=== PATIENT | female | born 1980 | race Caucasian/White ===

== ENCOUNTER 2017-01-18 08:12 | Outpatient (CLI) | payer OTHER ==
--- NOTE | 2017-01-18 13:05 | Ultrasound Report ---
RIGHT UPPER QUADRANT ULTRASOUND: 01/18/2017 CLINICAL INDICATION: Postprandial vomiting. TECHNIQUE: Real-time scanning was performed with solar sales representative and assessor static images obtained. FINDINGS: The liver measures 14.6 cm. Hepatic echogenicity is normal. No intrahepatic biliary dila tation or focal parenchymal lesion is present. The common bile duct measures 6 mm. The gallbladder is normal. The right kidney measures 10.1 cm, and demonstrates no hydronephrosis. No free fluid is present. IMPRESSION: NORMAL RIGHT UPPER QUADRANT ULTRASOUND. JOB #: [id number] EXT JOB #:[id number]
== END 2017-01-18 08:13 | disposition home or self-care (01) ==
LOC: DI 08:12
PROVIDERS: ATTEND Nurse Practitioner Family
DX: R11.10 Vomiting, unspecified (principal)
CPT/HCPCS: 76705

== ENCOUNTER 2017-10-12 22:12 | Emergency (ER) | payer MEDICAID, OTHER ==
[2017-10-12 22:46] LABS: BASOPHILS # (AUTO) 0.1 10^3/uL (0.0-0.1); BASOPHILS % (AUTO) 1.1 %; EOSINOPHILS # (AUTO) 0.3 10^3/uL (0.0-0.7); EOSINOPHILS % (AUTO) 4.5 %; HGB - HEMOGLOBIN 12.2 g/dL (12.0-16.0); LYMPHOCYTES # (AUTO) 1.5 10^3/uL (1.5-3.5); LYMPHOCYTES % (AUTO) 24.1 %; MEAN CORPUSCULAR HEMOGLOBIN 29.7 pg (27.0-31.0); MEAN CORPUSCULAR HGB CONC 33.2 g/dL (32.0-36.0); MEAN CORPUSCULAR VOLUME 89.7 fL (81.0-99.0); MONOCYTES # (AUTO) 0.4 10^3/uL (0.0-1.0); MONOCYTES % (AUTO) 5.7 %; NEUTROPHILS % (AUTO) 64.6 %; PLT - PLATELET COUNT 283 10^3/uL (130-450); RED BLOOD COUNT 4.09 10^6/uL (4.20-5.40); RED CELL DISTRIBUTION WIDTH 12.7 % (12.0-15.0); WHITE BLOOD COUNT 6.2 x10^3/uL (4.8-10.8)
[2017-10-12 23:05] LABS: ALBUMIN 3.1 g/dL (3.2-5.5); ALBUMIN/GLOBULIN RATIO 0.8 (1.0-2.2); ALKALINE PHOSPHATASE 74 IU/L (42-121); ALT ALANINE AMINOTRANSFERASE 42 IU/L (10-60); AST ASPARTATE AMINOTRANSFERASE 32 IU/L (10-42); BILIRUBIN,TOTAL < 0.2 mg/dL (0.2-1.0); BUN - BLOOD UREA NITROGEN 15 mg/dL (6-20); CARBON DIOXIDE - CO2 26 mmol/L (21-32); CHLORIDE 100 mmol/L (101-111); CREATININE 0.5 mg/dL (0.4-1.0); GFR - MDRD 139 (>89); GLUCOSE 110 mg/dL (70-100); LIPASE 13 U/L (22-51); SODIUM 134 mmol/L (135-145)
[2017-10-12] MEDS ORDERED: hydrALAZINE INJ 20 MG/ML VIAL IVP STA (23:08)
[2017-10-12 23:23] LABS: BILIRUBIN,URINE NEGATIVE (NEGATIVE); GLUCOSE, URINE (UA) NEGATIVE (NEGATIVE); KETONES,URINE (UA) NEGATIVE (NEGATIVE); LEUKOCYTE ESTERASE, URINE NEGATIVE (NEGATIVE); NITRITE,URINE NEGATIVE (NEGATIVE); OCCULT BLOOD,URINE MODERATE (NEGATIVE); PROTEIN,URINE NEGATIVE (NEGATIVE); UROBILINOGEN,URINE 0.2 (NORMAL) E.U./dL (NORMAL)
[2017-10-12 23:31] LABS: CLARITY,URINE CLEAR (CLEAR)
[2017-10-12 23:32] LABS: BACTERIA,URINE None Seen /HPF (None Seen); SQUAMOUS EPITHELIAL CELL,UR RARE Squamous (<= Few)
[2017-10-12] MEDS ORDERED: NIFEdipine ER 30 MG TABLET PO STA (23:45)
[2017-10-13 00:17] VITALS: BP 132/90
--- NOTE | 2017-10-13 00:31 | ED Physician Documentation ---
History of Present Illness - Stated complaint Stated Complaint: HIGH BP - Chief complaint Chief Complaint: General - History obtained from History obtained from: Patient, Family - History of Present Illness Timing: How many days ago (3) - Additonal information Additional information: Patient is a 37 year old female with a history of pre-eclampsia who is presenting to the emergency department for high blood pressure. patient states that she developed pre-eclampsia with both of her pregnancies. The child was induced at 38 weeks, 4 days ago. Patient states that her blood pressures had only been remotely high, but for the last two days patient's blood pressure has been close to 150/100. Patient denies any chest pain, shortness of breath, abdominal pain or headaches with the blood pressures. Review of Systems Constitutional: denies: Fever, Chills Eyes: reports: Reviewed and negative Ears: reports: Reviewed and negative Nose: reports: Reviewed and negative Throat: reports: Reviewed and negative Cardiac: denies: Chest pain / pressure, Palpitations Respiratory: denies: Dyspnea, Cough, Hemoptysis GI: denies: Abdominal Pain, Nausea, Vomiting : denies: Dysuria Skin: denies: Rash Musculoskeletal: reports: Back pain. denies: Neck pain Neurologic: denies: Numbness, Difficulty speaking, Syncope, Headache Immunocompromised: denies: Immunocompromised PD PAST MEDICAL HISTORY - Past Medical History Past Medical History: No Cardiovascular: None Respiratory: None Neuro: None Endocrine/Autoimmune: None GI: None METAL SMELTER: None : None HEENT: None Psych: None Musculoskeletal: None Derm: None - Past Surgical History Past Surgical History: No - Present Medications Home Medications: Ambulatory Orders Medication Instructions Recorded Confirmed Nifedipine [Nifedipine ER] 30 mg PO DAILY #14 tab.er.24 10/13/17 - Allergies Allergies/Adverse Reactions: Allergies Allergy/AdvReac Type Severity Reaction Status Date / Time No Known Drug Allergies Allergy Verified 10/12/17 22:20 - Social History Does the pt smoke?: No Smoking Status: Never smoker Does the pt drink ETOH?: No Does the pt have substance abuse?: No - Immunizations Immunizations are current?: Yes PD ED PE NORMAL - Vitals Vital signs reviewed: Yes - General General: Alert and oriented X 3, No acute distress - HEENT HEENT: Atraumatic, PERRL - Neck Neck: Supple, no meningeal sign, No JVD - Cardiac Cardiac: RRR, No murmur - Respiratory Respiratory: No respiratory distress, Clear bilaterally - Abdomen Abdomen: Soft - Derm Derm: Normal color, No rash - Extremities Extremities: No deformity, No edema, No calf tenderness / cord - Neuro Neuro: Alert and oriented X 3, Normal speech Eye Opening: Spontaneous Results - Vitals Vitals: Vital Signs - 24 hr 10/12/17 10/12/17 10/12/17 22:16 23:30 23:36 Temperature 36.2 C L Heart Rate 79 73 67 Respiratory 18 16 16 Rate Blood Pressure 157/108 H 150/114 H 158/100 H O2 Saturation 100 98 97 10/12/17 10/12/17 10/12/17 23:40 23:45 23:51 Temperature Heart Rate 71 76 73 Respiratory 16 16 16 Rate Blood Pressure 148/108 H 144/100 H 144/91 H O2 Saturation 97 98 99 10/13/17 10/13/17 00:01 00:17 Temperature Heart Rate 86 76 Respiratory 16 16 Rate Blood Pressure 138/93 H 132/90 H O2 Saturation 98 98 Oxygen O2 Source Room air - EKG (time done) 2246 Rate: Rate (enter#) (65) Rhythm: NSR QRS: LVH Ischemia: Normal ST segments Compare to prior EKG: Old EKG unavailable - Labs Labs: Laboratory Tests 10/12/17 10/12/17 10/12/17 22:34 22:39 22:39 WBC 6.2 RBC 4.09 L Hgb 12.2 Hct 36.7 L MCV 89.7 MCH 29.7 MCHC 33.2 RDW 12.7 Plt Count 283 MPV 9.0 Neut # 4.0 Lymph # 1.5 Morton # 0.4 Eos # 0.3 Baso # 0.1 Absolute Nucleated RBC 0.01 Nucleated RBC % 0.1 Sodium 134 L Potassium 3.7 Chloride 100 L Carbon Dioxide 26 Anion Gap 8.0 BUN 15 Creatinine 0.5 Estimated GFR (MDRD) 139 Glucose 110 H Calcium 9.0 Total Bilirubin < 0.2 L AST 32 ALT 42 Alkaline Phosphatase 74 Troponin I B-Natriuretic Peptide Total Protein 7.0 Albumin 3.1 L Globulin 3.9 Albumin/Globulin Ratio 0.8 L Lipase 13 L Urine Color YELLOW Urine Clarity CLEAR Urine pH 6.0 Ur Specific Baxter 1.015 Urine Protein NEGATIVE Urine Glucose (UA) NEGATIVE Urine Ketones NEGATIVE Urine Occult Blood MODERATE H Urine Nitrite NEGATIVE Urine Bilirubin NEGATIVE Urine Urobilinogen 0.2 (NORMAL) Ur Leukocyte Esterase NEGATIVE Urine RBC 6-10 H Urine WBC 0-3 Ur Squamous Epith Cells RARE Squamous Urine Bacteria None Seen Ur Microscopic Review INDICATED Urine Culture Comments NOT INDICATED 10/12/17 10/12/17 22:39 22:39 WBC RBC Hgb Hct MCV MCH MCHC RDW Plt Count MPV Neut # Lymph # Morton # Eos # Baso # Absolute Nucleated RBC Nucleated RBC % Sodium Potassium Chloride Carbon Dioxide Anion Gap BUN Creatinine Estimated GFR (MDRD) Glucose Calcium Total Bilirubin AST ALT Alkaline Phosphatase Troponin I < 0.04 B-Natriuretic Peptide 41 Total Protein Albumin Globulin Albumin/Globulin Ratio Lipase Urine Color Urine Clarity Urine pH Ur Specific Baxter Urine Protein Urine Glucose (UA) Urine Ketones Urine Occult Blood Urine Nitrite Urine Bilirubin Urine Urobilinogen Ur Leukocyte Esterase Urine RBC Urine WBC Ur Squamous Epith Cells Urine Bacteria Ur Microscopic Review Urine Culture Comments PD MEDICAL DECISION MAKING - ED course Complexity details: reviewed old records, reviewed results, re-evaluated patient , considered differential, d/w patient, d/w family, d/w residential sales consultant ED course: Patient was seen and examined at bedside. Iv access was gained and labs were drawn. patient was treated with hydralizine 10mg iv. Patient's urine was collected. patient blood work showed no signs of end organ damage. lfts and platelets were within normal limits. Patient's urine had no protein in it. Patient's blood pressure improved to 130/80. Case was discussed with Dr. Butler who agreed with the plan of discharge, starting the patient on antihypertensives and outpatient follow up. detailed discharge and follow up instructions were given to the patient and the family and patient was stable for outpatient follow up. Departure - Departure Disposition: 01 Home, Self Care Clinical Impression: Pre-eclampsia Condition: Good Instructions: Preeclampsia Follow-Up: Renetta Tucker ARNP [Primary Care Provider] - Prescriptions: Nifedipine [Nifedipine ER] 30 mg PO DAILY #14 tab.er.[id number] Comments: your diagnostics today were within normal limits. Your blood pressure responded to the medications so you will be started on an oral version. You should take it everyday. You should monitor your blood pressure three times a day and keep a journal. You should follow up with your OB this week. You should return to the emergency department for chest pain, shortness of breath, severe headaches, new worsening or uncontrollable symptoms.
[2017-10-13] MEDS ORDERED: NIFEdipine ER 30 MG TABLET PO STA (00:34)
[2017-10-13] MEDS ORDERED: NIFEdipine 10 MG CAPSULE PO ONE (00:46)
== END 2017-10-13 00:57 | disposition home or self-care (01) ==
LOC: ED 22:12
DX: O14.95 Unspecified pre-eclampsia, complicating the puerperium (principal)
CPT/HCPCS: 36415; 80053; 81001; 83690; 83880; 84484; 85025; 93005; 96374; 99284; A9270; 81003; 87086

== ENCOUNTER 2018-10-17 08:26 | Outpatient (CLI) | payer OTHER ==
[2018-10-17 09:20] LABS: BASOPHILS % (AUTO) 0.6 %; EOSINOPHILS # (AUTO) 0.4 10^3/uL (0.0-0.7); EOSINOPHILS % (AUTO) 7.6 %; HGB - HEMOGLOBIN 13.9 g/dL (12.0-16.0); LYMPHOCYTES # (AUTO) 1.6 10^3/uL (1.5-3.5); LYMPHOCYTES % (AUTO) 34.1 %; MEAN CORPUSCULAR HGB CONC 33.8 g/dL (32.0-36.0); MEAN CORPUSCULAR VOLUME 91.9 fL (81.0-99.0); MEAN PLATELET VOLUME 8.5 fL (7.9-10.8); MONOCYTES # (AUTO) 0.4 10^3/uL (0.0-1.0); MONOCYTES % (AUTO) 8.8 %; NEUTROPHILS # (AUTO) 2.3 10^3/uL (1.5-6.6); NEUTROPHILS % (AUTO) 48.9 %; PLT - PLATELET COUNT 247 10^3/uL (130-450); RED BLOOD COUNT 4.48 10^6/uL (4.20-5.40); RED CELL DISTRIBUTION WIDTH 13.1 % (12.0-15.0); WHITE BLOOD COUNT 4.6 x10^3/uL (4.8-10.8)
[2018-10-17 09:29] LABS: ALBUMIN 4.2 g/dL (3.2-5.5); ALBUMIN/GLOBULIN RATIO 1.4 (1.0-2.2); ALKALINE PHOSPHATASE 44 IU/L (42-121); ALT ALANINE AMINOTRANSFERASE 17 IU/L (10-60); AST ASPARTATE AMINOTRANSFERASE 19 IU/L (10-42); BILIRUBIN,TOTAL 0.8 mg/dL (0.2-1.0); BUN - BLOOD UREA NITROGEN 16 mg/dL (6-20); CALCIUM 9.2 mg/dL (8.5-10.3); CARBON DIOXIDE - CO2 26 mmol/L (21-32); CHLORIDE 98 mmol/L (101-111); CHOL/HDL RATIO 3.8 (<4.4); CHOLESTEROL 266 mg/dL; CREATININE 0.6 mg/dL (0.4-1.0); GFR - MDRD 112 (>89); GLUCOSE 81 mg/dL (70-100); HDL CHOLESTEROL 70 mg/dL; LDL CHOLESTEROL,CALCULATED 171 mg/dL; LDL/HDL RATIO 2.4 (<4.4); SODIUM 135 mmol/L (135-145); TOTAL PROTEIN 7.2 g/dL (6.7-8.2); VLDL CHOLESTEROL 25 mg/dL
--- NOTE | 2018-10-17 10:07 | Ultrasound Report ---
Reason: LOCALIZED SWELLING,MASS AND LUMP,NECK Procedure Date: 10/17/2018 Accession Number: [id number] / [id number] Procedure: US - Head or Neck Soft Tissue CPT Code: FULL RESULT: EXAM: THYROID ULTRASOUND EXAM DATE: 10/17/2018 09:02 AM. CLINICAL HISTORY: Localized swelling, mass and lump, neck. COMPARISON: None. TECHNIQUE: Real time sonographic imaging of the thyroid was performed by the family consumer science fcs teacher. Multiple credit resolution representative static images were saved for review. FINDINGS: THYROID GLAND: Right Lobe: 5.6 x 2.0 x 2.0 cm, volume 11.9 cc. Microscopic colloid cysts, otherwise normal background. Right Lobe Nodules: 2.3 x 1.7 x 2.2 cm inferior pole complex partially cystic partially solid nodule with peripheral vascularity. Left Lobe: 4.3 x 1.5 x 1.5 cm, volume 4.9 cc. Microscopic colloid cyst, otherwise normal background parenchyma. Left Lobe Nodules: Cystic appearing 0.5 x 0.3 x 0.3 cm nodule. Isthmus: 0.3 cm AP. Isthmic Nodules: None. LYMPH NODES: A few prominent lymph nodes which appear morphologically normal and do not meet size criteria. OTHER: None. IMPRESSION: Recommend fine-needle aspiration sampling of the right lower pole 2.3 cm nodule. Management recommendations are based on 2015 [place] [employer] Management Guidelines for Adult Patients with Thyroid Nodules and Differentiated Thyroid Cancer. RADIA
== END 2018-10-17 08:27 | disposition home or self-care (01) ==
LOC: DI 08:26
PROVIDERS: ATTEND Nurse Practitioner
DX: Z00.00 Encounter for general adult medical examination without abnormal findings (principal); E04.1 Nontoxic single thyroid nodule
CPT/HCPCS: 36415; 76536; 80053; 80061; 83721; 84443; 85025

== ENCOUNTER 2018-12-13 07:40 | Outpatient (CLI) | payer OTHER ==
[2018-12-13] MEDS ORDERED: BUFFERED LIDOCAINE 10 ML SYRINGE ONE (08:34)
--- NOTE | 2018-12-13 10:41 | Ultrasound Report ---
Reason: THYROID NODULE,RIGHT Procedure Date: 12/13/2018 Accession Number: [id number] / [id number] Procedure: US - FNA Bx w/US Gnd les CPT Code: 24974 FULL RESULT: EXAM: Thyroid Fine Needle Aspiration EXAM DATE: 12/13/2018 08:52 AM. CLINICAL HISTORY: Thyroid nodule, right. COMPARISON: None. TECHNIQUE: The risks, benefits, and alternatives of the procedure were discussed with the patient. All questions were answered. Written and verbal consent were obtained. A site was marked over the right thyroid nodule in question under live sonographic evaluation, then subsequently prepped and draped in a sterile manner. Local anesthesia was performed with 1% lidocaine. A total of 4 22-gauge fine-needle aspirates/passes were performed through the cystic partially solid right thyroid lobe nodule in question, then passed to the node js developer for preparation. Estimated blood loss was 0 mL. Sonographic images demonstrate needle placement within the right thyroid lobe nodule in question. Fluoroscopy Time: 0 minutes Number of Images: 15 sonographic images FINDINGS IMPRESSION: Right thyroid nodule FNA. RADIA
[2018-12-13] MEDS ORDERED: BUFFERED LIDOCAINE 10 ML SYRINGE IU ONE (11:24)
== END 2018-12-13 07:41 | disposition home or self-care (01) ==
LOC: DI 07:40
PROVIDERS: ATTEND Nurse Practitioner
DX: E04.1 Nontoxic single thyroid nodule (principal)
CPT/HCPCS: 10005

== ENCOUNTER 2021-02-20 08:32 | Outpatient (CLI) | payer OTHER ==
[2021-02-20 16:27] LABS: BASOPHILS % (AUTO) 0.6 %; EOSINOPHILS # (AUTO) 0.3 10^3/uL (0.0-0.7); EOSINOPHILS % (AUTO) 6.3 %; HCT - HEMATOCRIT 43.5 % (37.0-47.0); LYMPHOCYTES # (AUTO) 1.6 10^3/uL (1.5-3.5); LYMPHOCYTES % (AUTO) 32.5 %; MEAN CORPUSCULAR HGB CONC 32.2 g/dL (32.0-36.0); MEAN CORPUSCULAR VOLUME 99.5 fL (81.0-99.0); MEAN PLATELET VOLUME 10.8 fL (7.9-10.8); MONOCYTES # (AUTO) 0.3 10^3/uL (0.0-1.0); NEUTROPHILS # (AUTO) 2.6 10^3/uL (1.5-6.6); NEUTROPHILS % (AUTO) 53.2 %; PLT - PLATELET COUNT 302 10^3/uL (130-450); RED BLOOD COUNT 4.37 10^6/uL (4.20-5.40); RED CELL DISTRIBUTION WIDTH 12.2 % (12.0-15.0); WHITE BLOOD COUNT 4.9 x10^3/uL (4.8-10.8)
[2021-02-20 17:01] LABS: ALBUMIN 4.3 g/dL (3.2-5.5); ALBUMIN/GLOBULIN RATIO 1.7 (1.0-2.2); ALKALINE PHOSPHATASE 26 IU/L (42-121); ALT ALANINE AMINOTRANSFERASE 11 IU/L (10-60); AST ASPARTATE AMINOTRANSFERASE 17 IU/L (10-42); BILIRUBIN,TOTAL 0.7 mg/dL (0.2-1.0); BUN - BLOOD UREA NITROGEN 12 mg/dL (6-20); CALCIUM 9.2 mg/dL (8.5-10.3); CARBON DIOXIDE - CO2 22 mmol/L (21-32); CHLORIDE 101 mmol/L (101-111); CHOL/HDL RATIO 3.5 (<4.4); CHOLESTEROL 269 mg/dL; CREATININE 0.7 mg/dL (0.4-1.0); GFR - MDRD 93 (>89); GLUCOSE 99 mg/dL (70-100); HDL CHOLESTEROL 76 mg/dL; LDL CHOLESTEROL,CALCULATED 179 mg/dL; LDL/HDL RATIO 2.4 (<4.4); POTASSIUM 4.4 mmol/L (3.5-5.0); SODIUM 133 mmol/L (135-145); TOTAL PROTEIN 6.8 g/dL (6.7-8.2); TRIGLYCERIDES 70 mg/dL; VLDL CHOLESTEROL 14 mg/dL
[2021-02-20 17:05] LABS: THYROID STIMULATING HORMONE 1.58 uIU/mL (0.34-5.60)
== END 2021-02-20 08:33 | disposition home or self-care (01) ==
LOC: LAB.S 08:32
PROVIDERS: ATTEND Physician Assistant
DX: Z00.00 Encounter for general adult medical examination without abnormal findings (principal); Z79.899 Other long term (current) drug therapy; E78.5 Hyperlipidemia, unspecified; E04.1 Nontoxic single thyroid nodule
CPT/HCPCS: 36415; 80053; 80061; 83721; 84443; 85025

== ENCOUNTER 2021-10-30 08:00 | Outpatient (CLI) | payer OTHER | END 2021-10-30 23:59 | disposition home or self-care (01) | LOC: LAB.S 08:00 | PROVIDERS: ATTEND Registered Nurse | DX: R30.0 Dysuria (principal) | CPT/HCPCS: 87077; 87086 ==

== ENCOUNTER 2022-03-19 08:00 | Outpatient (CLI) | payer OTHER ==
[2022-03-19 16:51] LABS: BACTERIAL VAGINOSIS DNA NEGATIVE (NEGATIVE); CANDIDA GLABRATA DNA NEGATIVE (NEGATIVE); CANDIDA GROUP DNA POSITIVE (NEGATIVE); CANDIDA KRUSEI DNA NEGATIVE (NEGATIVE); TRICHOMONAS VAGINALIS DNA NEGATIVE (NEGATIVE)
== END 2022-03-19 23:59 | disposition home or self-care (01) ==
LOC: LAB.S 08:00
PROVIDERS: ATTEND Physician Assistant Medical
DX: R30.0 Dysuria (principal); N76.0 Acute vaginitis
CPT/HCPCS: 81514; 87086; 87181

== ENCOUNTER 2022-06-23 08:00 | Outpatient (CLI) | payer OTHER | END 2022-06-23 23:59 | disposition home or self-care (01) | LOC: LAB.S 08:00 | PROVIDERS: ATTEND Nurse Practitioner | DX: R30.0 Dysuria (principal) | CPT/HCPCS: 87086; 87101; 87181 ==

== ENCOUNTER 2023-11-08 12:51 | Outpatient (CLI) | payer OTHER | END 2023-11-08 12:52 | disposition home or self-care (01) | LOC: DI.S 12:51 | PROVIDERS: ATTEND Registered Nurse | DX: Z53.9 Procedure and treatment not carried out, unspecified reason (principal) ==

== ENCOUNTER 2024-03-03 07:00 | Outpatient (CLI) | payer OTHER | END 2024-03-03 23:59 | disposition home or self-care (01) | LOC: LAB.S 07:00 | PROVIDERS: ATTEND Emergency Medicine | DX: N30.00 Acute cystitis without hematuria (principal) | CPT/HCPCS: 87077; 87086 ==